=== PATIENT | female | born 1960 | race Caucasian/White ===

== ENCOUNTER 2020-09-29 15:15 | Outpatient (RCR) | payer OTHER, SELFPAY ==
[2020-05-12 13:33] VITALS: BMI 35.0
[2020-09-29] MEDS: COVID-19 VACC, MRNA(PFIZER)/PF 30 MCG/0.3 ML SYRINGE IM (07:37)
[2020-10-20] MEDS: COVID-19 VACC, MRNA(PFIZER)/PF 30 MCG/0.3 ML SYRINGE IM (07:34)
== END 2020-09-29 23:59 ==
LOC: IMMUN 15:15
PROVIDERS: Visit Provider Family Medicine
DX: Z23 Encounter for immunization (principal)
CPT/HCPCS: 0001A; 0002A; 91300